=== PATIENT | female | born 1960 | race Caucasian/White ===

== ENCOUNTER 2019-02-23 23:05 | Emergency (ER) | payer OTHER ==
[~2019-02-23] VITALS: Ht 154.9 cm; Wt 92.0 kg
[2019-02-23 23:09] VITALS: Ht 154.9 cm; Wt 92.0 kg
[2019-02-24] MEDS ORDERED: D-ME473S2 PO (01:11)
--- NOTE | 2019-02-24 01:19 | ERD ---
ER Documentation Chief Complaint Chief Complaint COUGH X'S 10 DAYS HPI 58-year-old female with past medical history of diabetes type 2, hypertension presents with 10-day complaint of persistent cough. Patient states cough productive of yellow sputum. Also with rhinorrhea. Reports a single episode of diarrhea after having NyQuil but none since then. She reports subjective fevers but with normal temperature here. She otherwise denies shortness of breath, dyspnea, nausea, vomiting, diarrhea, abdominal pain, urinary symptoms. Denies smoking history. She otherwise without complaint. ROS All systems reviewed and are negative except as per history of present illness. Medications Home Meds Active Scripts Dextromethorphan Hb-Promethazine Hcl* (Promethazine DM* Syrup) 473 Ml Syrup, 5 ML PO Q6 PRN for COUGH for 7 Days, ML Prov:SHANTA MORRELL PA-C 02/24/19 Allergies Allergies: Coded Allergies: No Known Allergy (Unverified , 02/23/19) PMhx/Soc History of Surgery: Yes (Back surgery late 1960s) Anesthesia Reaction: No Hx Neurological Disorder: No Hx Respiratory Disorders: No Hx Cardiac Disorders: Yes (HTN) Hx Psychiatric Problems: No Hx Miscellaneous Medical Probl: No Hx Alcohol Use: No Hx Substance Use: No Hx Tobacco Use: No Smoking Status: Never smoker FmHx Family History: No diabetes, No coronary disease, No other Physical Exam Vitals Vital Signs Date Temp Pulse Resp B/P (MAP) Pulse Ox O2 O2 Flow FiO2 Time Delivery Rate 02/24/19 97.9 76 19 131/71 99 Room Air 03:14 (91) 02/23/19 97.5 91 20 151/91 95 23:09 (111) Physical Exam I have reviewed the triage vital signs. Const: Well nourished, well developed, appears stated age Eyes: PERRL, no conjunctival injection HENT: NCAT, Neck supple without meningismus CV: RRR, Warm, well-perfused extremities RESP: CTAB, Unlabored respiratory effort GI: soft, non-tender, non-distended, no masses MSK: No gross deformities appreciated Skin: Warm, dry. No rashes Neuro: grossly non focal Psych: Appropriate mood and affect. Procedures/MDM Pt presents with coughing history suggestive of acute bronchitis. >5days of cough, without evidence of PNA, common cold, or asthma. Unlikely pertussis, sinusitis, or FB irritation/obstruction. ED course: Chest x-ray without acute finding Will discharge with promethazine for cough ED Course: 1.HR <100 2.RR <24 3.Temperature <38 (100.4) 4.Exam findings not consistent with focal consolidation 5.Age <64yr Pt low risk for PNA, plan to DC home w PCP follow up in next 3 days and ED return precautions discussed. Pt educated regarding potential side effects, cost, and possibility for microbial resistance with antibiotics, hence why they are not receiving them. DISPOSITION PLAN: We discussed follow up with the patient's primary care doctor within 24 to 48 hours. Patient counseled regarding my diagnostic impression and care plan. Prior to discharge all questions answered. Pt agrees with treatment plan and und erstands strict return precautions. Precautionary instructions provided including instructions to return to the ER if not improving or for any worsening or changing symptoms or concerns. Disclaimer: Inadvertent spelling and grammatical errors are likely due to EHR/dictation software use and do not reflect on the overall quality of patient care. Also, please note that the electronic time recorded on this note does not necessarily reflect the actual time of the patient encounter. Departure Diagnosis: Primary Impression: Cough Condition: Stable Patient Instructions: Cough, Chronic, Uncertain Cause, (Adult) Referrals: [facility] YOU HAVE RECEIVED A MEDICAL SCREENING EXAM AND THE RESULTS INDICATE THAT YOU DO NOT HAVE A CONDITION THAT REQUIRES URGENT TREATMENT IN THE EMERGENCY DEPARTMENT. FURTHER EVALUATION AND TREATMENT OF YOUR CONDITION CAN WAIT UNTIL YOU ARE SEEN IN YOUR DOCTORS OFFICE WITHIN THE NEXT 1-2 DAYS. IT IS YOUR RESPONSIBILITY TO MAKE AN APPOINTMENT FOR FOLOW-UP CARE. IF YOU HAVE A PRIMARY DOCTOR --you should call your primary doctor and schedule an appointment IF YOU DO NOT HAVE A PRIMARY DOCTOR YOU CAN CALL OUR PHYSICIAN REFERRAL HOTLINE AT IF YOU CAN NOT AFFORD TO SEE A PHYSICIAN YOU CAN CHOSE FROM THE FOLLOWING [facility] CL[facility]ICS [facility] [id number] [facility] [address] [facility] [facility] [address] [facility] [address] [facility] [address] [facility]. [facility] [address] Additional Instructions: Call your primary care doctor TOMORROW for an appointment during the next 2-3 days.See the doctor sooner or return here if your condition worsens before your appointment time. SHANTA MORRELL PA-C February 24, 2019 01:19
[2019-02-24 03:14] VITALS: BP 131/71; PULSE 76; RESP 19
== END 2019-02-24 02:46 | disposition home or self-care (01) ==
LOC: FTE 23:05
DX: R05 Cough (principal); E11.9 Type 2 diabetes mellitus without complications; I10 Essential (primary) hypertension
CPT/HCPCS: 71046; Z7502